=== PATIENT | female | born 1995 | race Caucasian/White ===

== ENCOUNTER 2018-06-21 15:11 | Emergency (ER) | payer OTHER ==
[~2018-06-21] VITALS: Ht 162.6 cm; Wt 91.6 kg
[2018-06-21 15:24] VITALS: BP 124/61
--- NOTE | 2018-06-21 15:34 | NUR ---
PT AMB TO LOBBY, VSS
--- NOTE | 2018-06-21 15:47 | NUR ---
pt ambulated to er bed 12
== END 2018-06-21 17:52 | disposition home or self-care (01) ==
LOC: MED 15:11
DX: B34.9 Viral infection, unspecified (principal); G40.909 Epilepsy, unspecified, not intractable, without status epilepticus
CPT/HCPCS: 36415; 87081; 87804; 99283

== ENCOUNTER 2018-06-24 14:16 | Emergency (ER) | payer OTHER ==
[~2018-06-24] VITALS: Ht 162.6 cm; Wt 91.6 kg
[2018-06-24 14:25] VITALS: BP 132/80
[2018-06-24] MEDS ORDERED: BENZ-196 PO (14:32)
[2018-06-24] MEDS ORDERED: NAPR-54 PO (14:32)
[2018-06-24] MEDS ORDERED: LEVE750T3 PO (14:32)
--- NOTE | 2018-06-24 14:34 | NUR ---
PATIENT AMBULATED TO BED #9 WITH FAMILY
--- NOTE | 2018-06-24 14:40 | NUR ---
NAUSEA. SEEN IN ER 2/4 WITH PRESCRIPTION BUT NO IMPROVEMENT PER PATIENT. HX: EPILEPSY. TAKING KEPPRA,TESSALON PERLES,NAPROSYN. DENIES PAIN AT THIS TIME. NO SOB NOTED.LUNG SOUNDS RALES. DENIES N/V/D; SKIN IS PINK/WARM/DRY; AAOX4 WITH EVEN AND STEADY GAIT; LUNGS CLEAR BL; HR EVEN AND REGULAR; PT DENIES ANY FEVER, CP, SOB, OR COUGH AT THIS TIME; PATIENT STATES PAIN OF 0/10 AT THIS TIME; VSS; PATIENT POSITIONED FOR COMFORT; HOB ELEVATED; BEDRAILS UP X2; BED DOWN. ER MD MADE AWARE OF PT STATUS.
[2018-06-24 15:56] VITALS: BP 132/80
--- NOTE | 2018-06-24 15:57 | NUR ---
Patient discharged with v/s stable. Written and verbal after care instructions given and explained. Patient alert, oriented and verbalized understanding of instructions. Ambulatory with steady gait. All questions addressed prior to discharge. ID band removed. Patient advised to follow up with PMD. Rx of guiatuss and albuterol given. Patient educated on indication of medication including possible reaction and side effects. Opportunity to ask questions provided and answered.
== END 2018-06-24 15:57 | disposition home or self-care (01) ==
LOC: MED 14:16
DX: J06.9 Acute upper respiratory infection, unspecified (principal); Z79.899 Other long term (current) drug therapy
CPT/HCPCS: 71046; 99283; Q0092